=== PATIENT | male | born 1930 | race Caucasian/White ===

== ENCOUNTER 2016-09-26 04:59 | Emergency (ER) | payer OTHER ==
[~2016-09-26 04:59] MED LIST: ASPIRIN EC81 M1 PO; AVODART0.5 M1 PO; CARDIZEM CD240 M1 PO; COMBIGAN EYE DRO5 ML OU; FUROSEMIDE20 M1 PO; LINZESS145 MC1 PO; LISINOPRIL5 M1 PO; LORAZEPAM1 M1 PO; LUMIGAN2.5 ML OU; METOPROLOL TART50 M1 PO; NITROSTAT0.4 M1 SL; PRESERVISION A1 EAC1 PO; RANEXA500 M1 PO; SIMVASTATIN40 M1 PO; VITAMIN D1000 UNIT PO; XARELTO20 M2 PO
--- NOTE | 2016-09-26 05:40 | ED NOSE COMPLAINT ---
History of Present Illness General Chief Complaint: Epistaxis/Nasal Foreign Body Stated Complaint: EPISTAXIS, SEEN HERE YESTERDAY FOR SAME Source: patient, family, old records Exam Limitations: no limitations Vital Signs & Intake/Output Vital Signs & Intake/Output Vital Signs Date Time Temp Pulse Resp B/P B/P Pulse O2 O2 Flow FiO2 Mean Ox Delivery Rate 09/26 0520 98.9 87 18 140/80 97 Room Air Allergies Coded Allergies: No Known Allergies (09/25/16) Reconcile Medications Aspirin (Ecotrin*) 81 MG TABLET.DR 1 TAB PO DAILY HEART/BLOOD (Reported) Bimatoprost (Lumigan) 0.01 % DROPS 1 GTT OU QPM BOTH EYES (Reported) Brimonidine Tartrate/Timolol (Combigan Eye Drops) 0.2 %-0.5 % DROPS 1 DROP OU BID BOTH EYES (Reported) Cholecalciferol (Vitamin D3) (Vitamin D) 1,000 UNIT TABLET 1 TAB PO DAILY SUPPLEMENT (Reported) Diltiazem HCl (Cardizem Cd) 240 MG CAP.ER.24H 1 CAP PO DAILY HEART/BP ( Reported) Dutasteride (Avodart) 0.5 MG CAPSULE 1 CAP PO DAILY PROSTATE (Reported) Furosemide 20 MG TABLET 1 TAB PO DAILY DIURETIC (Reported) Linaclotide (Linzess) 145 MCG CAPSULE 1 CAP PO DAILY GI (Reported) Lisinopril 5 MG TABLET 1 TAB PO DAILY BP (Reported) Lorazepam 1 MG TABLET 1 TAB PO QPM SLEEP (Reported) Metoprolol Tartrate 50 MG TABLET 1 TAB PO BID HEART/BP (Reported) Nitroglycerin (Nitrostat) 0.4 MG TAB.SUBL 1 TAB SL AD PRN CHEST PAIN ( Reported) 1st sign of attack; may repeat every 5 minutes until relief; if pain persists after 3 tablets in 15 minutes, prompt medical att Ranolazine (Ranexa) 500 MG TAB.ER.12H 1 TAB PO BID HEART (Reported) Rivaroxaban (Xarelto) 20 MG TABLET 1 TAB PO DAILY BLOOD THINNER (Reported) with food Simvastatin (Simvastatin*) 40 MG TABLET 1 TAB PO QPM CHOLESTEROL (Reported) Vit C/E/Zn/Coppr/Lutein/Zeaxan (Preservision Areds 2 Softgel) 250-200-40 CAPSULE 1 TAB PO BID SUPPLEMENT (Reported) Triage Note: NOSEBLEED SEEN EARLIER FOR SAME, STATES NOW BOTH SIDES ARE BLEEDING Triage Nurses Notes Reviewed? yes HPI: Patient was seen here earlier this evening for epistaxis. Patient is on Xaralto. Bleeding was controlled with Rhino Rocket. Patient went home and then sneezed. Patient then began bleeding around the Rhino Rocket. There is no lightheadedness. There is no difficulty breathing or swallowing. There are no fevers or chills. Past History Travel History Traveled to [place] past 21 day No Medical History Any Pertinent Medical History? see below for history Neurological: NONE EENT: NONE Cardiovascular: AFIB, BYPASS Respiratory: NONE Gastrointestinal: NONE Hepatic: NONE Renal: NONE Musculoskeletal: NONE Psychiatric: NONE Endocrine: NONE Surgical History Surgical History: non-contributory Psychosocial History What is your primary language Guatemalan Tobacco Use: Never used ETOH Use: denies use Illicit Drug Use: denies illicit drug use Family History Hx Contributory? No Review of Systems Review of Systems Constitutional: Reports: no symptoms. EENTM: Reports: see HPI, epistaxis. Respiratory: Reports: no symptoms. Cardiovascular: Reports: no symptoms. GI: Reports: no symptoms. Musculoskeletal: Reports: no symptoms. Neurological/Psychological: Reports: no symptoms. Immunologic/Allergic: Reports: no symptoms. Physical Exam Physical Exam General Appearance: well developed/nourished, alert, awake Head: atraumatic Eyes: Bilateral: PERRL, EOMI. Nose: active bleeding Neck: normal inspection, supple Cardiovascular/Respiratory: normal breath sounds, normal peripheral pulses, no respiratory distress, irregularly irregular Neurologic/Psych: no motor/sensory deficits, awake, alert, oriented x 3, normal mood/affect Progress Differential Diagnoses I considered the following diagnoses in my evaluation of the patient: [EPISTAXIS ] Plan of Care: Prior Rhino Rocket removed. Patient then blew his nose to remove the clots. A new Rhino Rocket was inserted. Initial ED EKG: none Comments: Patient ambulated in the emergency department with out evidence of any further bleeding. Departure Departure Disposition: HOME OR SELF CARE Condition: Stable Clinical Impression Primary Impression: Anterior epistaxis Referrals: MERCEDES THOMPSON,SAMI Pandey (PCP/Family) AMOR THOMPSON,CLIFTON Juarez Additional Instructions: KEEP PACKING IN TAKE ANTIBIOTICS PREVIOUSLY PRESCRIBED FOLLOW UP WITH ENT RETURN FOR ANY CONCERNS Departure Forms: Customer Survey General Discharge Information Procedures Epistaxis/Nasal Foreign Body Status: bleeding Clots Cleared Nasal Passage: by patient blowing Inspected With: otoscope Bleeding Site: ANTERIOR SEPTUM Nasal Rocket: Right: Inserted Anterior.
[2016-09-26 06:28] VITALS: BP 132/76
== END 2016-09-26 06:29 ==
LOC: ERH 04:59
DX: R04.0 Epistaxis (principal)
CPT/HCPCS: 99282